=== PATIENT | male | born 1965 | race Caucasian/White ===

== ENCOUNTER 2021-08-27 17:11 | Inpatient (IN) | payer OTHER ==
[~2021-08-27] VITALS: Ht 180.3 cm; Wt 78.5 kg
--- NOTE | 2021-08-27 17:19 | NUR ---
BIB [facility] 79 FROM HOME C/P ABDOMINAL PAIN X3 DAYS 10/10 ON PAIN SCALE, PT HAS RECENT ILEOSTOMY SURGERY 3 WEEKS AGO. VITALS ARE WITHIN NORMAL LIMITS. AWAITING MD MEDINA.
[2021-08-27] MEDS ORDERED: HYDROMORPHONE INJ 2 MG/ML DISP.SYRIN IV ONE ×3 (17:30→23:00)
[2021-08-27] MEDS ORDERED: IV NS 0.9% 1,000 ML BAG IV ONE ×2 (17:30→23:30)
[2021-08-27] MEDS ORDERED: ONDANSETRON HCL/PF 4 MG/2 ML VIAL IVP ONE (17:30)
--- NOTE | 2021-08-27 17:30 | NUR ---
SUREKHA Marcos FA 20G. LABS DRAWN AND COLLECTED AT BEDSIDE.
--- NOTE | 2021-08-27 17:31 | NUR ---
PT UNABLE TO PROVIDE URINE SAMPLE AT THIS TIME, URINAL AT BEDSIDE.
[2021-08-27] MEDS ORDERED: ONDANSETRON HCL/PF 4 MG/2 ML VIAL ONE (17:42)
[2021-08-27] MEDS ORDERED: HYDROMORPHONE INJ 2 MG/ML DISP.SYRIN ONE ×2 (17:43→22:45)
[2021-08-27 18:12] LABS: BASOPHILS # (AUTO) 0.1 K/uL (0.0-0.2); BASOPHILS % (AUTO) 0.8 % (0.0-2.0); EOSINOPHILS % (AUTO) 0.4 % (0.0-6.0); HEMATOCRIT 38 % (39-51); HEMOGLOBIN 12.5 g/dL (13.5-17.5); LYMPHOCYTES # (AUTO) 1.5 K/uL (0.8-4.8); LYMPHOCYTES % (AUTO) 12.3 % (20.0-44.0); MEAN CORPUSCULAR HGB CONC 33 g/dl (31.0-36.0); MEAN CORPUSCULAR VOLUME 89 fL (80-96); MONOCYTES # (AUTO) 0.9 K/uL (0.1-1.30); MONOCYTES % (AUTO) 7.5 % (2.0-12.0); NEUTROPHILS # (AUTO) 9.9 K/uL (1.8-8.9); PLATELET COUNT (AUTO) 470 K/uL (150-450); RED BLOOD CELL COUNT(AUTO) 4.25 MIL/uL (4.5-6.0); WHITE BLOOD COUNT (AUTO) 12.5 K/uL (4.3-11.0)
[2021-08-27] MEDS ORDERED: CEFTRIAXONE 1GM BAG (ER ONLY) 50 ML IV ONE ×2 (18:38→19:00)
[2021-08-27] MEDS ORDERED: IOHEXOL-300 100 ML VIAL IV ONE (18:39)
[2021-08-27 18:41] LABS: BILIRUBIN,DIRECT 0.2 mg/dL (0.0-0.2); BILIRUBIN,TOTAL 0.9 mg/dL (0.2-1.0); TOTAL PROTEIN, SERUM 8.4 g/dL (6.4-8.2)
--- NOTE | 2021-08-27 19:26 | NUR ---
URINE COLLECTED AND SENT TO LAB
[2021-08-27 20:01] LABS: BILIRUBIN,URINE NEGATIVE (NEGATIVE); COLOR,URINE DARK YELLOW (YELLOW); LEUKOCYTE ESTERASE ,URINE TRACE (NEGATIVE); NITRITE, URINE NEGATIVE (NEGATIVE); PROTEIN,URINE 30 mg/dl (NEGATIVE); UGLUCOSE NEGATIVE (NEGATIVE); UROBILINOGEN,URINE 0.2 EU/dL (0.2)
[2021-08-27 20:34] LABS: BACTERIA,URINE Rare /HPF (None Seen); RBC,URINE 51-80 /HPF (0-2); SQUAMOUS EPITHELIAL CELL,UR Rare /HPF (None Seen)
[2021-08-27 20:53] LABS: CALCIUM, SERUM 10.1 mg/dL (8.5-10.1)
--- NOTE | 2021-08-27 22:44 | NUR ---
COVID SWAB DONE AND SENT TO LAB
--- NOTE | 2021-08-27 23:37 | NUR ---
BED 113-1
--- NOTE | 2021-08-27 23:48 | NUR ---
REPORT GIVEN TO PRAFUL ALVA.
[2021-08-28] MEDS ORDERED: DICYCLOMINE HCL 10 MG CAPSULE PO PRN
[2021-08-28] MEDS ORDERED: Z GUARD REMEDY 4 OZ OINT TP PRN
[2021-08-28] MEDS ORDERED: ACETAMINOPHEN 325 MG TABLET PO PRN
[2021-08-28] MEDS ORDERED: MAGNESIUM HYDROXIDE 30 ML UDC PO PRN
[2021-08-28] MEDS ORDERED: ONDANSETRON HCL/PF 4 MG/2 ML VIAL IVP PRN
[2021-08-28] MEDS ORDERED: MAG HYDROX/AL HYDROX/SIMETH 30 ML UDC PO PRN
--- NOTE | 2021-08-28 00:21 | NUR ---
PATIENT BEING TRANSFERRED TO [facility]
[2021-08-28] MEDS ORDERED: CIPROFLOXACIN HCL 250 MG TABLET PO SCH (00:30)
[2021-08-28 00:32] VITALS: BP 147/91
--- NOTE | 2021-08-28 00:32 | NUR ---
DONOR RELATIONS ASSOCIATE NOTES: RECEIVED REPORT FROM PRAFUL MONZON. PT WAS TRANSFERRED FROM ER VIA GURNEY, PLACED IN ROOM 113, BED 1. PT AWAKE, ALERT/ORIENTED X4 AND VERBALLY RESPONSIVE. ON ROOM AIR AND PT TOLERATED WELL. O2 SAT 99%. BREATHING EVEN AND UNLABORED. IV ACCESS ON LFA#20G INTACT AND PATENT. NO S/S OF INFILTRATIONS. ON NS @75CC/HR. BODY ASSESSMENT DONE. COLOSTOMY BAG AND ILEOSTOMY BAG ON RT LOWER ABDOMEN. COLOSTOMY BAG WAS CHANGES DUE TO SOILED. NOTED ANAL AREA WITH FISTULA. ALL OTHER PARTS OF THE BODY INTACT. NO OPEN SKIN OR SKIN DISCOLORATION NOTED. STILL C/O PAIN, DILAUDID GIVEN AT ER AT 2247. PROVIDED URINAL. APPLIED HOSPITAL GOWN. ALL SAFETY MEASURES IN PLACE. BED IN LOWEST POSITION AND LOCKED. SIDE RAILS UP X2, PLACE CALL LIGHT WITH IN REACH. WILL CONTINUE TO MONITOR
[2021-08-28] MEDS: METRONIDAZOLE 500 MG TABLET PO SCH ×4 (01:24→20:23)
[2021-08-28] MEDS: ENOXAPARIN SODIUM 40 MG/0.4 ML DISP.SYRIN SQ SCH ×2 (01:25→20:24)
--- NOTE | 2021-08-28 01:27 | NUR ---
RN NOTES: PT STILL C/O PAIN ON COLOSTOMY SITE, BENTYL 10 MG CAP FOR MILD PAIN. WILL CONTINUE TO MONITOR
[2021-08-28] MEDS ORDERED: CIPROFLOXACIN HCL 250 MG TABLET ONE (01:44)
[2021-08-28] MEDS: HYDROMORPHONE INJ 2 MG/ML DISP.SYRIN IV PRN ×6 (02:51→22:09)
--- NOTE | 2021-08-28 03:00 | NUR ---
RN NOTES: PT C/O SEVERE PAIN ON ABDOMEN AREA, DILAUDID GIVEN PER PRN ORDER. WILL CONTINUE TO MONITOR
[2021-08-28 04:00] VITALS: BP 147/91
[2021-08-28] MEDS: IV NS 0.9% 1,000 ML IV PRN ×2 (05:12→20:40)
--- NOTE | 2021-08-28 06:41 | NUR ---
RN CLOSING NOTES: PT IN BED AWAKE, ALERT/ORIENTED X4 AND VERBALLY RESPONSIVE. ON ROOM AIR AND PT TOLERATED WELL. O2 SAT 100%. BREATHING EVEN AND UNLABORED. IV ACCESS ON LFA#20G INTACT AND PATENT. NO S/S OF INFILTRATIONS. RUNNING NS @75CC/HR. COLOSTOMY BAG AND ILEOSTOMY BAG ON RT LOWER ABDOMEN INTACT AND PATENT. NO C/O PAIN OR DISCOMFORT. NO ACUTE DISTRESS. ALL SAFETY MEASURES IN PLACE. BED IN LOWEST POSITION AND LOCKED. SIDE RAILS UP X2, PLACE CALL LIGHT WITH IN REACH. WILL ENDORSE TO MORNING SHIFT NURSE.
[2021-08-28 06:45] LABS: BASOPHILS # (AUTO) 0.1 K/uL (0.0-0.2); BASOPHILS % (AUTO) 0.8 % (0.0-2.0); EOSINOPHILS % (AUTO) 1.2 % (0.0-6.0); HEMATOCRIT 34 % (39-51); LYMPHOCYTES # (AUTO) 1.3 K/uL (0.8-4.8); MEAN CORPUSCULAR HGB CONC 33 g/dl (31.0-36.0); MEAN CORPUSCULAR VOLUME 89 fL (80-96); MONOCYTES # (AUTO) 0.8 K/uL (0.1-1.30); MONOCYTES % (AUTO) 8.2 % (2.0-12.0); NEUTROPHILS # (AUTO) 6.9 K/uL (1.8-8.9); NEUTROPHILS % (AUTO) 75.8 % (43.0-81.0); PLATELET COUNT (AUTO) 430 K/uL (150-450); RED BLOOD CELL COUNT(AUTO) 3.77 MIL/uL (4.5-6.0); WHITE BLOOD COUNT (AUTO) 9.2 K/uL (4.3-11.0)
--- NOTE | 2021-08-28 07:30 | NUR ---
RN OPENING NOTE PATIENT IS IN BED AWAKE, ALERT AND ORIENTED X 4. ON ROOM AIR WITH O2 SATURATION AT 100%. WITH COLOSTOMY BAG AND ILEOSTOMY BAG INTACT, INSERTION SITE CLEAN AND DRY. WITH LEFT FOREARM IV LINE INFUSING WITH NS AT 75 CC/HR. COMPLAINS OF ABDOMINAL PAIN 11/13. NOT IN ANY FORM OF RESPIRATORY DISTRESS. BED IS LOCKED IN LOWEST POSITION. 3 GUARD RAILS RAISED, CALL CELESTIN WITHIN REACH, AND ALL HOSPITAL SAFETY PRECAUTIONS ARE IN PLACE. WILL CONTINUE TO MONITOR THROUGHOUT SHIFT. Addendum: 08/28/21 at 1615 by ANUPAMA IVY RN NO COLOSTOMY BAG. ABCESS DRAIN ON RIGHT SIDE OF ABDOMEN..
[2021-08-28 07:32] LABS: POTASSIUM 4.3 mmol/L (3.5-5.1)
[2021-08-28] MEDS ORDERED: STIVARGA (07:51)
[2021-08-28] MEDS ORDERED: POLY17PO29 PO (07:51)
[2021-08-28] MEDS ORDERED: HYDR4TAB57 PO (07:51)
[2021-08-28] MEDS ORDERED: BUPR150T10 PO (07:51)
[2021-08-28] MEDS ORDERED: METR-147 PO (07:51)
[2021-08-28 11:06] LABS: CALCIUM, SERUM 9.4 mg/dL (8.5-10.1)
[2021-08-28] MEDS: CEFTRIAXONE 1 G in IV D5W 50 ML IV SCH (11:10)
[2021-08-28] MEDS: PANTOPRAZOLE 40 MG TABLET.DR PO SCH (11:10)
[2021-08-28 12:00] VITALS: BP 129/83
[2021-08-28 12:51] LABS: THYROID STIMULATING HORMONE 3.221 uIU/mL (0.358-3.74)
[2021-08-28 12:58] LABS: MAGNESIUM 1.9 mg/dL (1.8-2.4)
--- NOTE | 2021-08-28 18:38 | NUR ---
RN CLOSING NOTE PATIENT IS IN BED, AWAKE, ON SEMI-SIMS'S POSITION, ALERT ORIENTED X4. ON ROOM AIR WITH O2 SATURATION OF 99%. WITH ILEOSTOMY AND ABSCESS DRAIN ON RIGHT SIDE OF ABDOMEN. WITH LEFT FOREARM IV LINE INFUSING WITH NS AT 75 CC/HR. NOT IN ANY FORM OF DISTRESS BUT VERBALIZES PAIN. ALL DUE MEDICATIONS GIVEN. ILEOSTOMY BAG CHANGED AND STOMA CLEANED. PATIENT KEPT COMFORTABLE AND STABLE WITHIN THE SHIFT. BED IN LOWEST POSITION, 3 SIDE RAILS UP, CALL LIGHT WITHIN REACH. WILL ENDORSE TO SENIOR FUNCTIONAL ANALYST NURSE.
--- NOTE | 2021-08-28 19:10 | NUR ---
RN NOTES: RECEIVED AWAKE ON BED, A/OX4,ORIENTED TO UNIT AND STAFF, ON RA, NO SIGN OF PAIN OR DISCOMFORT,PRESENCE OF ILEOSTOMY AND ABSCESS DRAIN ON THE RIGHT SIDE OF THE ABDOMEN, ROOM AIR, ON CLEAR LIQUID DIET, PRESENCE OF IV LINE ON THE LFA G#20 WITH NS AT 75 ML/HR ON GOING,CALL LIGHT KEPT WITHIN EASY REACH, FALL, SAFETY AND ASPIRATION PRECAUTION OBSERVED.
[2021-08-28 20:00] VITALS: BP 129/83
--- NOTE | 2021-08-28 20:40 | NUR ---
RN NOTES: -IVF CONSUMED, UNABLE TO SCAN IV BOTTLE, MANUALLY ENTERED IN EMAR. -IVF OF NS AT 75 ML/HR STARTED AT 2039.
--- NOTE | 2021-08-28 22:10 | NUR ---
RN NOTES: -COMPLAINED OF ABDOMINAL PAIN, ASKING FOR HIS PAIN MEDICATION, BP-143/98 VA-72, NON PHARMACOLOGIC INTERVENTION RENDERED.
[2021-08-29] MEDS: HYDROMORPHONE INJ 2 MG/ML DISP.SYRIN IV PRN ×6 (02:11→22:35)
--- NOTE | 2021-08-29 02:13 | NUR ---
RN NOTES: COMPLAINED OF PAIN UPON HE WAKE UP, REPOSITIONED, HE REQUEST FOR PAIN MEDICATION PAIN 10/10, GIVEN, NON PHARMACOLOGIC INTERVENTION RENDERED, WARM BLANKET PROVIDED AND DIM LIT ROOM.
[2021-08-29 04:00] VITALS: BP 146/89
[2021-08-29] MEDS: METRONIDAZOLE 500 MG TABLET PO SCH ×3 (04:46→21:48)
--- NOTE | 2021-08-29 06:26 | NUR ---
RN NOTES: DURING REPOSITIONING COMPLAINED OF ABDOMINAL PAIN, OFFERED TABLET, HE PREFER THE INJECTION FOR PAIN, 10/10, GIVEN.
[2021-08-29 07:20] LABS: BASOPHILS # (AUTO) 0.1 K/uL (0.0-0.2); BASOPHILS % (AUTO) 1.1 % (0.0-2.0); EOSINOPHILS % (AUTO) 1.8 % (0.0-6.0); HEMATOCRIT 33 % (39-51); HEMOGLOBIN 10.8 g/dL (13.5-17.5); LYMPHOCYTES # (AUTO) 1.1 K/uL (0.8-4.8); LYMPHOCYTES % (AUTO) 15.7 % (20.0-44.0); MEAN CORPUSCULAR HGB CONC 33 g/dl (31.0-36.0); MEAN CORPUSCULAR VOLUME 89 fL (80-96); MONOCYTES # (AUTO) 0.7 K/uL (0.1-1.30); MONOCYTES % (AUTO) 9.9 % (2.0-12.0); NEUTROPHILS % (AUTO) 71.5 % (43.0-81.0); PLATELET COUNT (AUTO) 425 K/uL (150-450); WHITE BLOOD COUNT (AUTO) 7.1 K/uL (4.3-11.0)
--- NOTE | 2021-08-29 07:30 | NUR ---
RN NOTES: TAKING A NAP, PAIN MEDICATION IS EFFECTIVE PER PATIENT, ILEOSTOMY DRAINAGE -[phone], WOUND DRAIN=50, FOR ID CONSULT, FOR LABS THIS MORNING, TO F/U C/S RESULT, ON PAIN MANAGEMENT,ENDORSED FOR CONTINUITY OF CARE.
--- NOTE | 2021-08-29 07:36 | NUR ---
ms rn received on bed, awake,alert,oriented x4,colostomy and drain intact w/ drainage, moderate amount, will monitor,denies pain at this time,will monitor patient.
[2021-08-29] MEDS: PANTOPRAZOLE 40 MG TABLET.DR PO SCH (08:16)
[2021-08-29] MEDS: buPROPion SR 150 MG TABLET.ER PO SCH (08:16)
[2021-08-29] MEDS: POLYETHYLENE GLYCOL 3350 17 GM POWD.PACK PO SCH ×2 (08:16→16:35)
[2021-08-29] MEDS: CEFTRIAXONE 1 G in IV D5W 50 ML IV SCH (08:19)
[2021-08-29] MEDS ORDERED: METRONIDAZOLE 500 MG TABLET PO SCH (09:00)
[2021-08-29] MEDS: IV NS 0.9% 1,000 ML IV PRN (13:27)
--- NOTE | 2021-08-29 15:20 | NUR ---
ms wu breakfast served,due meds given,tolerated well.
[2021-08-29 16:00] VITALS: BP 136/79
[2021-08-29] MEDS: GABAPENTIN 300 MG CAPSULE PO SCH (16:35)
[2021-08-29] MEDS: FERROUS SULFATE (325 MG) 325 MG/TAB TABLET PO SCH (16:35)
--- NOTE | 2021-08-29 18:22 | NUR ---
ms rn on bed, no distress noted.
[2021-08-29 20:00] VITALS: BP 144/87
--- NOTE | 2021-08-29 20:27 | NUR ---
RN NOTE RECEIVED PT AWAKE, ALERT AND ORIENTED. NOT IN ANY DISTRESS. MILD ABDOMINAL PAIN ON MOVEMENT. R. ABD ABSCESS DRAINAGE IN PLACE DRAINING SANGUINEOUS, COLOSTOMY BAG IN PLACE. NS RUNNING AT 75ML/HR. WILL CONTINUE TO MONITOR.
[2021-08-29] MEDS: ENOXAPARIN SODIUM 40 MG/0.4 ML DISP.SYRIN SQ SCH (21:48)
--- NOTE | 2021-08-29 22:39 | NUR ---
RN NOTE PT COMPLAINED OF PAIN ON R ABDOMEN, 12/14. EXPLAINED WITH NEW ORDER OF DILAUDID TABLET. PT PREFERS DILAUDID IVP. PT VERBALIZES UNDERSTANDING. WILL CONTINUE TO MONITOR.
[2021-08-30] MEDS: IV NS 0.9% 1,000 ML IV PRN ×2 (01:55→15:46)
[2021-08-30 04:00] VITALS: BP 140/87
[2021-08-30] MEDS: METRONIDAZOLE 500 MG TABLET PO SCH ×3 (04:45→20:39)
[2021-08-30] MEDS: HYDROMORPHONE HCL 2 MG TABLET PO PRN ×2 (04:45→17:41)
--- NOTE | 2021-08-30 06:51 | NUR ---
RN NOTE PT AWAKE, NO CHANGES IN LOC NOTED. PAIN MEDS GIVEN NEEDED. RATES PAIN 1/10 AT THIS TIME. NO SIGNS OF DISTRESS NOTED. COLOSTOMY WITH 450ML OUTPUT, LIQUID MIXED WITH SOFT BROWN STOOL. ABDOMEN DRAIN WITH 60ML SANGUINEOUS DRAINAGE. CONTINUE ON IVFLUIDS NS AT 75ML/HR, INFUSING WELL. FREQUENT CHECKS, ASSISTED ON ADLS. WILL ENDORSE TO NEXT SHIFT NURSE FOR VALENTINO.
[2021-08-30 07:02] LABS: BASOPHILS % (AUTO) 0.4 % (0.0-2.0); EOSINOPHILS % (AUTO) 1.1 % (0.0-6.0); HEMATOCRIT 32 % (39-51); HEMOGLOBIN 10.8 g/dL (13.5-17.5); LYMPHOCYTES # (AUTO) 0.9 K/uL (0.8-4.8); LYMPHOCYTES % (AUTO) 10.5 % (20.0-44.0); MEAN CORPUSCULAR HGB CONC 34 g/dl (31.0-36.0); MEAN CORPUSCULAR VOLUME 88 fL (80-96); MONOCYTES # (AUTO) 0.8 K/uL (0.1-1.30); PLATELET COUNT (AUTO) 420 K/uL (150-450); RED BLOOD CELL COUNT(AUTO) 3.66 MIL/uL (4.5-6.0); WHITE BLOOD COUNT (AUTO) 8.9 K/uL (4.3-11.0)
[2021-08-30 07:07] LABS: IMMUNOGLOBULIN A, SERUM 262 mg/dL (90-386); IMMUNOGLOBULIN G, SERUM 974 mg/dL (603-1613); IMMUNOGLOBULIN M, SERUM 170 mg/dL (20-172)
[2021-08-30 07:31] LABS: CREATININE 0.8 mg/dL (0.6-1.3); POTASSIUM 3.3 mmol/L (3.5-5.1)
--- NOTE | 2021-08-30 07:48 | NUR ---
MS RN OPENING NOTE Patient in bed, awake. A/O x 4, able to make needs known. On room air, breathing evenly and unlabored. No SOB or s/s of distress noted. IV access on LFA #20 infusing NS at 75 ml/hr. Colostomy noted on right lower quadrant of abdomen. Abdomen drain in place. Safety precautions in place: bed in low, locked position; siderails up x 2; call light within reach. Will continue to monitor.
[2021-08-30 08:00] VITALS: BP_SYST 108; BP_SYST 133; BP_DIAS 46; BP_DIAS 87
[2021-08-30] MEDS: buPROPion SR 150 MG TABLET.ER PO SCH (08:39)
[2021-08-30] MEDS: FERROUS SULFATE (325 MG) 325 MG/TAB TABLET PO SCH ×2 (08:39→16:42)
[2021-08-30] MEDS: POLYETHYLENE GLYCOL 3350 17 GM POWD.PACK PO SCH ×2 (08:39→16:42)
[2021-08-30] MEDS: PANTOPRAZOLE 40 MG TABLET.DR PO SCH (08:39)
[2021-08-30] MEDS: CEFTRIAXONE 1 G in IV D5W 50 ML IV SCH (08:39)
[2021-08-30] MEDS: HYDROMORPHONE INJ 2 MG/ML DISP.SYRIN IV PRN ×3 (08:39→20:40)
[2021-08-30] MEDS: GABAPENTIN 300 MG CAPSULE PO SCH ×3 (08:39→16:42)
--- NOTE | 2021-08-30 08:39 | NUR ---
RN NOTE Patient complained of pain on his abdomen 8/10, PRN Dilaudid 2 mg given. Will continue to monitor.
[2021-08-30] MEDS ORDERED: POTASSIUM CHLORIDE 20 MEQ TAB.PRT.SR PO ONE (09:00)
--- NOTE | 2021-08-30 14:25 | NUR ---
RN NOTE Patient complained of pain on his abdomen 8/10, PRN Dilaudid 2 mg given. Will continue to monitor.
[2021-08-30 15:07] LABS: *SPE A/G RATIO 0.8 (0.7-1.7); *SPE ALPHA-1-GLOBULIN 0.4 g/dL (0.0-0.4); *SPE ALPHA-2-GLOBULIN 1.1 g/dL (0.4-1.0); *SPE BETA GLOBULIN 1.1 g/dL (0.7-1.3); *SPE M-SPIKE Not Observed g/dL (Not Observed)
[2021-08-30 16:00] VITALS: BP 126/69
--- NOTE | 2021-08-30 17:41 | NUR ---
RN NOTE Patient complained of pain on his abdomen 8/, PRN Dilaudid po 4 mg given. Will continue to monitor.
--- NOTE | 2021-08-30 19:29 | NUR ---
MS RN CLOSING NOTE Patient in bed, resting. A/O x 4, able to make needs known. Stable on room air, breathing evenly and unlabored. No SOB or s/s of distress noted. IV access on LFA #20 infusing NS at 75 ml/hr. Colostomy noted on right lower quadrant of abdomen with an output of 520 cc brown colored stool. Abdomen drain in place with an output of 5 cc sanguinous drainage. All needs attended to. Due meds given. Safety precautions in place: bed in low, locked position; siderails up x 2; call light within reach. Will endorse to engineering inspector nurse for VALENTINO..
--- NOTE | 2021-08-30 19:56 | NUR ---
RN NOTE RECEIVED PT IN BED, WATCHING TV. NOT IN ANY DISTRESS. DENIES ANY SOB, DENIES PAIN AT THIS TIME. ABDOMEN ABSCESS DRAINAGE IN PLACE, COLOSTOMY BAG IN PLACE. NS RUNNING AT 75ML/HR, RFA IV PATENT AND INTACT. WILL CONTINUE TO MONITOR.
[2021-08-30 20:00] VITALS: BP 136/83
[2021-08-30] MEDS: ENOXAPARIN SODIUM 40 MG/0.4 ML DISP.SYRIN SQ SCH (20:39)
[2021-08-31] MEDS: HYDROMORPHONE HCL 2 MG TABLET PO PRN ×4 (00:24→21:21)
[2021-08-31] MEDS: HYDROMORPHONE INJ 2 MG/ML DISP.SYRIN IV PRN (03:48)
--- NOTE | 2021-08-31 03:48 | NUR ---
rn note pt complained of pain on left back, pt stated its constant, which is not new pain. dilaudid ivp given as ordered. will continue to monitor.
[2021-08-31] MEDS: IV NS 0.9% 1,000 ML IV PRN (03:50)
[2021-08-31 04:00] VITALS: BP 127/83
[2021-08-31] MEDS: METRONIDAZOLE 500 MG TABLET PO SCH (05:05)
--- NOTE | 2021-08-31 05:19 | NUR ---
rn note per pt pain on left back still constant but pain level lessen.
--- NOTE | 2021-08-31 06:36 | NUR ---
RN NOTE PT AWAKE, TOLERABLE PAIN AT THIS TIME. NOT IN ANY DISTRESS. TOLERATES ROOM AIR. CHANGED COLOSTOMY BAG TWICE, STOOL MIXED WITH SOFT AND LIQUID. ABDOMINAL ABSCESS DRAIN INTACT, 0ML OUTPUT. CONTINUE ON IVFLUIDS. WILL ENDORSE TO NEXT SHIFT NURSE FOR VAL[facility]INO
--- NOTE | 2021-08-31 06:51 | NUR ---
RN NOTE UNABLE TO WEIGH PT. BED SCALE NOT WORKING
[2021-08-31 06:56] LABS: BASOPHILS % (AUTO) 0.4 % (0.0-2.0); EOSINOPHILS % (AUTO) 1.6 % (0.0-6.0); HEMATOCRIT 34 % (39-51); HEMOGLOBIN 11.1 g/dL (13.5-17.5); LYMPHOCYTES # (AUTO) 1.4 K/uL (0.8-4.8); MEAN CORPUSCULAR HGB CONC 33 g/dl (31.0-36.0); MEAN CORPUSCULAR VOLUME 88 fL (80-96); MONOCYTES # (AUTO) 0.9 K/uL (0.1-1.30); MONOCYTES % (AUTO) 8.9 % (2.0-12.0); NEUTROPHILS # (AUTO) 7.3 K/uL (1.8-8.9); NEUTROPHILS % (AUTO) 75.1 % (43.0-81.0); PLATELET COUNT (AUTO) 456 K/uL (150-450); RED BLOOD CELL COUNT(AUTO) 3.82 MIL/uL (4.5-6.0); WHITE BLOOD COUNT (AUTO) 9.7 K/uL (4.3-11.0)
--- NOTE | 2021-08-31 07:00 | NUR ---
RN OPENING NOTE PATIENT LAYING IN BED, A/O X 4, ABLE TO MAKE NEEDS KNOWN. TOLERATING WELL ON ROOM AIR WITH NO S/S SOB OR RESPIRATORY DISTRESS. NO COMPLAINTS OF PAIN OR DISCOMFORT AT THIS TIME. LFA @ 20 G CLEAN, INTACT, AND INFUSING 75 ML/HR. COLOSTOMY BAG NOTED ON RIGHT LOWER QUADRANT DRAINING BROWN LIQUID STOOL. ABDOMINAL DRAIN IN PLACE. SAFETY MEASURES IN PLACE: BED IN LOWEST LOCKED POSITION, SIDE RAILS UP X 2 , CALL LIGHT WITHIN REACH. WILL CONTINUE TO MONITOR.
[2021-08-31 07:07] LABS: CALCIUM, SERUM 9.3 mg/dL (8.5-10.1); POTASSIUM 4.3 mmol/L (3.5-5.1)
[2021-08-31] MEDS: PANTOPRAZOLE 40 MG TABLET.DR PO SCH (07:55)
[2021-08-31 08:00] VITALS: BP 126/76
[2021-08-31] MEDS: buPROPion SR 150 MG TABLET.ER PO SCH (08:38)
[2021-08-31] MEDS: FERROUS SULFATE (325 MG) 325 MG/TAB TABLET PO SCH ×2 (08:38→16:10)
[2021-08-31] MEDS: GABAPENTIN 300 MG CAPSULE PO SCH ×3 (08:38→16:10)
[2021-08-31] MEDS: POLYETHYLENE GLYCOL 3350 17 GM POWD.PACK PO SCH ×2 (08:39→16:10)
[2021-08-31] MEDS: CEFTRIAXONE 1 G in IV D5W 50 ML IV SCH (08:45)
[2021-08-31] MEDS ORDERED: NALOXONE HCL 0.4 MG/ML AMPUL IV PRN (09:00)
[2021-08-31] MEDS ORDERED: FENTANYL TD PATCH (50 MCG/HR) 50 MCG/HR PATCH.TD72 TD SCH (09:30)
[2021-08-31 16:00] VITALS: BP 145/92
--- NOTE | 2021-08-31 19:00 | NUR ---
RN NOTE ADMINISTERED PAIN MEDICATION DURING SHIFT FOR RECURRING 8-9/10 LOWER RIGHT ABDOMINAL PAIN, TRANSDERMAL FENTANYL PATCH AT 0922, PO DILAUDED 2 MG @ 1039 AND 1360 PRN ADMINISTERED PER PATIENT REQUEST.
--- NOTE | 2021-08-31 19:00 | NUR ---
RN CLOSING NOTE PATIENT LAYING IN BED, A/O X 4, ABLE TO MAKE NEEDS KNOWN. TOLERATING WELL ON ROOM AIR WITH NO S/S SOB OR RESPIRATORY DISTRESS. NO COMPLAINTS OF PAIN OR DISCOMFORT AT THIS TIME. LFA @ 20 G CLEAN, INTACT, AND INFUSING NS @ 75 ML/HR. COLOSTOMY BAG NOTED ON RIGHT LOWER QUADRANT DRAINING BROWN LIQUID STOOL. ABDOMINAL DRAIN IN PLACE, NO DRAINAGE NOTED DURING SHIFT. SAFETY MEASURES IN PLACE: BED IN LOWEST LOCKED POSITION, SIDE RAILS UP X 2 , CALL LIGHT WITHIN REACH. ALL NEEDS MET. WILL ENDORSE TO COURT RECORDER FOR VALENTINO.
[2021-08-31] MEDS: ENOXAPARIN SODIUM 40 MG/0.4 ML DISP.SYRIN SQ SCH (21:22)
[2021-09-01] VITALS: BP 142/87
[2021-09-01] MEDS: HYDROMORPHONE HCL 2 MG TABLET PO PRN (02:37)
[2021-09-01 05:52] LABS: BASOPHILS % (AUTO) 0.3 % (0.0-2.0); EOSINOPHILS % (AUTO) 1.2 % (0.0-6.0); HEMATOCRIT 32 % (39-51); HEMOGLOBIN 10.7 g/dL (13.5-17.5); LYMPHOCYTES # (AUTO) 1.6 K/uL (0.8-4.8); LYMPHOCYTES % (AUTO) 14.4 % (20.0-44.0); MEAN CORPUSCULAR HGB CONC 34 g/dl (31.0-36.0); MEAN CORPUSCULAR VOLUME 86 fL (80-96); MONOCYTES # (AUTO) 0.9 K/uL (0.1-1.30); MONOCYTES % (AUTO) 7.6 % (2.0-12.0); NEUTROPHILS # (AUTO) 8.5 K/uL (1.8-8.9); NEUTROPHILS % (AUTO) 76.5 % (43.0-81.0); PLATELET COUNT (AUTO) 446 K/uL (150-450); WHITE BLOOD COUNT (AUTO) 11.2 K/uL (4.3-11.0)
[2021-09-01 06:23] LABS: ALBUMIN 2.4 g/dL (3.4-5.0); BILIRUBIN,TOTAL 0.3 mg/dL (0.2-1.0); CALCIUM, SERUM 8.7 mg/dL (8.5-10.1); CREATININE 0.9 mg/dL (0.6-1.3); POTASSIUM 3.7 mmol/L (3.5-5.1); TOTAL PROTEIN, SERUM 6.8 g/dL (6.4-8.2)
[2021-09-01] MEDS: IV NS 0.9% 1,000 ML IV PRN (06:26)
--- NOTE | 2021-09-01 06:39 | NUR ---
RN NOTES PT AWAKE, TOLERABLE PAIN AT THIS TIME. NOT IN ANY DISTRESS. TOLERATES ROOM AIR. DRAIN COLOSTOMY BAG TWICE, STOOL MIXED WITH SOFT AND LIQUID. ABDOMINAL ABSCESS DRAIN INTACT, 0ML OUTPUT. CONTINUE ON IV FLUIDS. WILL ENDORSE TO NEXT SHIFT NURSE FOR VALENTINO
--- NOTE | 2021-09-01 07:10 | NUR ---
RN NOTE RECEIVED PATIENT IN BED RESTING ALERT ORIENTED X4 VERBALLY RESPONSIVE ON ROOM AIR O2:96% IV SITE IS ON LEFT FOREARM INTACT PATENT ON IV HYDRATION NS 75CC/HR,ABDOMINAL ABSCESS DRAIN INTACT,COLOSTOMY BAG IN PLACE,SAFETY MEASURE IMPLEMENT BED IN LOW POSITION AND LOCKED,CALL LIGHT WITHIN REACH CONTINUE TO MONITOR.
[2021-09-01] MEDS: PANTOPRAZOLE 40 MG TABLET.DR PO SCH (07:26)
[2021-09-01 08:00] VITALS: BP 148/91
[2021-09-01] MEDS ORDERED: FENT1PAT6 TD (08:26)
[2021-09-01] MEDS ORDERED: FERR325T28 PO (08:26)
[2021-09-01] MEDS ORDERED: HYDR4TAB57 PO (08:26)
[2021-09-01] MEDS: buPROPion SR 150 MG TABLET.ER PO SCH (08:42)
[2021-09-01] MEDS: FERROUS SULFATE (325 MG) 325 MG/TAB TABLET PO SCH (08:42)
[2021-09-01] MEDS: GABAPENTIN 300 MG CAPSULE PO SCH ×2 (08:42→13:10)
[2021-09-01] MEDS: POLYETHYLENE GLYCOL 3350 17 GM POWD.PACK PO SCH (08:43)
--- NOTE | 2021-09-01 14:45 | NUR ---
RAPID OUTSOLE STITCHER NOTE PATIENT DISCHARGE HOME IN STABLE CONDITION AFTER HE SIGNED ALL DISCHARGE PAPERS AND BELONGINGS,PATIENT IS ALERT ORIENTED X4 VERBALLY RESPONSIVE ON ROOM AIR 98% REMOVED IV SITE APPLIED DRESSING NO BLEEDING NOTED,PATIENT LEFT HOSPITAL IN STABLE CONDITION BY PRIVATE CAR WITH FAMILY MEMBER.
== END 2021-09-01 13:51 | disposition home or self-care (01) | DRG 720 ==
LOC: ER 17:15 → MEDSG1 23:42
PROVIDERS: ADMIT Nurse Practitioner Family; ATTEND Internal Medicine
PROC: 05H933Z Insertion of Infusion Device into Right Brachial Vein, Percutaneous Approach (ICD-10-PCS; principal; 2021-09-01)
DX: A41.9 Sepsis, unspecified organism (principal); K65.1 Peritoneal abscess; C78.89 Secondary malignant neoplasm of other digestive organs; E44.1 Mild protein-calorie malnutrition; C19 Malignant neoplasm of rectosigmoid junction; E87.1 Hypo-osmolality and hyponatremia; E88.09 Other disorders of plasma-protein metabolism, not elsewhere classified; C79.31 Secondary malignant neoplasm of brain; D75.839 Thrombocytosis, unspecified; E11.65 Type 2 diabetes mellitus with hyperglycemia; I10 Essential (primary) hypertension; K52.9 Noninfective gastroenteritis and colitis, unspecified; Z85.048 Personal history of other malignant neoplasm of rectum, rectosigmoid junction, and anus; Z20.822 Contact with and (suspected) exposure to COVID-19; Z92.21 Personal history of antineoplastic chemotherapy; Z92.3 Personal history of irradiation; R74.8 Abnormal levels of other serum enzymes; D64.9 Anemia, unspecified; E61.1 Iron deficiency; F11.20 Opioid dependence, uncomplicated; G89.3 Neoplasm related pain (acute) (chronic); G89.4 Chronic pain syndrome; Z80.0 Family history of malignant neoplasm of digestive organs; K40.90 Unilateral inguinal hernia, without obstruction or gangrene, not specified as recurrent; N40.0 Benign prostatic hyperplasia without lower urinary tract symptoms
CPT/HCPCS: 36410; 36415; 71045-TC; 80048-TC; 80053-TC; 80061-TC; 80076-TC; 81001; 82378; 82607-TC; 82728-TC; 82784; 83540-TC; 83605-TC; 83690-TC; 83735-TC; 84100-TC; 84155; 84165; 84443-TC; 85025-TC; 86334; 87040-TC; 87081-TC; A4217; A6403; C9803; G0378; J0696; J1170; J1650; J2405; J7030; J7060; Q9967